=== PATIENT | male | born 1940 | race Caucasian/White ===

== ENCOUNTER 2021-01-13 11:24 | Emergency (ER) | payer MEDICARE ==
[~2021-01-13] VITALS: Ht 175.3 cm; Wt 88.6 kg
[2021-01-13 11:29] VITALS: BP 173/83; Ht 175.3 cm; Wt 88.6 kg
[2021-01-13] MEDS ORDERED: STATIN (11:30)
[2021-01-13] MEDS ORDERED: SUPPLEMENTS (11:30)
[2021-01-13] MEDS ORDERED: HYDROCHLOROTHIAZIDE (11:30)
[2021-01-13] MEDS ORDERED: LEVOTHYROXINE (11:30)
[2021-01-13] MEDS ORDERED: AMLODIPINE (11:30)
[2021-01-13] MEDS ORDERED: CLEOCIN HCL300 MG PO (11:49)
== END 2021-01-13 12:09 | disposition home or self-care (01) ==
LOC: D.ER 11:24
DX: S61.412A Laceration without foreign body of left hand, initial encounter (principal); W22.8XXA Striking against or struck by other objects, initial encounter; Y93.9 Activity, unspecified; Y92.9 Unspecified place or not applicable